=== PATIENT | female | born 2000 | race African-American/Black ===

== ENCOUNTER 2022-01-27 14:45 | Emergency (ER) | payer BC ==
[2022-01-27 17:47] LABS: Pregnancy Test - Urine (BHCG) POSITIVE (Negative); Pregu Control Background? CLEAR/WHITE (CLR/WHITE); Pregu Control Bar Appear? YES (CONTROL BAR)
== END 2022-01-27 18:15 | disposition home or self-care (01) ==
LOC: ERS 14:45
DX: O99.891 Other specified diseases and conditions complicating pregnancy (principal); R20.0 Anesthesia of skin; Z3A.01 Less than 8 weeks gestation of pregnancy
CPT/HCPCS: 81025; 99284